=== PATIENT | female | born 1985 | race American Indian/Alaskan Native ===

== ENCOUNTER 2017-04-18 05:24 | Emergency (ER) | payer OTHER ==
[2017-04-18] MEDS ORDERED: DECADRON IV ONE (07:23)
[2017-04-18] MEDS ORDERED: UNASYN/NS 3 GM/100 ML 3 GM/100 ML BAG IV ONE (07:23)
[2017-04-18] MEDS ORDERED: FLAGYL 500 MG/100 ML 500 MG/100 ML BAG IV ONE (07:23)
[2017-04-18] MEDS ORDERED: NACL 0.9% 1000 ML IV ONE (07:23)
[2017-04-18] MEDS ORDERED: TYLENOL PR ONE (07:25)
--- NOTE | 2017-04-18 07:26 | Emergency Department Report ---
ED General Adult HPI - General Chief complaint: Sore Throat Stated complaint: SORE THROAT; FEVER Time Seen by Provider: 04/18/17 07:18 Source: patient, family, RN notes reviewed Mode of arrival: Ambulatory Limitations: Physical Limitation - History of Present Illness Initial comments: This is a 32-year-old female who was previously unknown to this provider. The patient indicates that she is not . Patient presents to the ER with a complaint of neck pain, sore throat, difficulty swallowing for 3-4 days. Patient has difficulty speaking, however she is able to answer yes no questions by nodding her head. She indicates positive fevers, positive mild headache, positive neck pain, no chest pain, abdominal pain, shortness breath, nausea, vomiting, diarrhea, patient indicates no recent travel -: Gradual Location: neck Radiation: non-radiation Quality: aching Consistency: constant Improves with: movement, rest Associated Symptoms: fever/chills, malaise, weakness. denies: chest pain, cough - Related Data Home Medications Medication Instructions Recorded Confirmed Last Taken No Known Home Medications [No 03/15/16 03/15/16 Unknown Reported Home Medications] Allergies Allergy/AdvReac Type Severity Reaction Status Date / Time No Known Allergies Allergy Unverified 03/15/16 19:08 ED Review of Systems ROS: Stated complaint: SORE THROAT; FEVER Other details as noted in HPI ED Past Medical Hx - Past Medical History Previous Medical History?: No - Surgical History Past Surgical History?: No - Social History Smoking Status: Current Every Day Smoker Substance Use Type: None - Medications Home Medications: Home Medications Medication Instructions Recorded Confirmed Last Taken Type No Known Home Medications [No 03/15/16 03/15/16 Unknown History Reported Home Medications] ED Physical Exam - General Limitations: Physical Limitation General appearance: alert, in distress - Head Head exam: Present: atraumatic, normocephalic - Eye Eye exam: Present: normal appearance, EOMI - ENT ENT exam: Present: mucous membranes moist, normal external ear exam, other ( patient has submandibular tenderness. Patient has trismus. Patient has difficulty speaking. There is no stridor. Patient has diffuse anterior neck tenderness. There is pain with tracheal manipulation) - Neck Neck exam: Present: normal inspection, full ROM, lymphadenopathy - Respiratory Respiratory exam: Present: normal lung sounds bilaterally. Absent: respiratory distress - Cardiovascular Cardiovascular Exam: Present: normal rhythm, tachycardia, normal heart sounds. Absent: systolic murmur, diastolic murmur, rubs, gallop - GI/Abdominal GI/Abdominal exam: Present: soft, normal bowel sounds. Absent: distended, tenderness, guarding, rebound, rigid, pulsatile mass - Extremities Exam Extremities exam: Present: normal inspection, full ROM, normal capillary refill. Absent: tenderness, pedal edema, joint swelling, calf tenderness - Back Exam Back exam: Present: normal inspection, full ROM. Absent: tenderness, CVA tenderness (R), paraspinal tenderness, vertebral tenderness - Neurological Exam Neurological exam: Present: alert, other (Extraocular movements intact. Tongue midline. No facial droop. Facial sensation intact to light touch in the V1, V2 , V3 distribution bilaterally. 5 and 5 strength in 4 extremities.. Sensation is intact to light touch in 4 extremities.). Absent: motor sensory deficit - Psychiatric Psychiatric exam: Present: anxious - Skin Skin exam: Present: warm, dry, intact, normal color. Absent: rash ED Course Vital Signs 04/18/17 04/18/17 04/18/17 05:28 07:36 07:59 Temperature 102.7 F H Pulse Rate 116 H Respiratory 18 12 Rate Blood Pressure 139/76 119/78 O2 Sat by Pulse 97 97 98 Oximetry 04/18/17 04/18/17 04/18/17 08:01 08:03 08:05 Temperature Pulse Rate Respiratory Rate Blood Pressure 99/66 99/66 99/66 O2 Sat by Pulse 100 99 99 Oximetry 04/18/17 04/18/17 04/18/17 08:07 08:09 08:11 Temperature Pulse Rate Respiratory Rate Blood Pressure 99/66 99/66 99/66 O2 Sat by Pulse 100 99 99 Oximetry 04/18/17 04/18/17 04/18/17 08:13 08:15 08:16 Temperature Pulse Rate Respiratory Rate Blood Pressure 99/66 99/66 99/66 O2 Sat by Pulse 100 99 99 Oximetry 04/18/17 04/18/17 04/18/17 08:31 08:32 08:35 Temperature Pulse Rate 102 H Respiratory 13 Rate Blood Pressure 114/73 114/73 114/73 O2 Sat by Pulse 100 100 100 Oximetry 04/18/17 04/18/17 04/18/17 08:37 08:39 08:41 Temperature Pulse Rate 100 H 97 H 103 H Respiratory 13 13 11 L Rate Blood Pressure 114/73 114/73 114/73 O2 Sat by Pulse 99 99 100 Oximetry 04/18/17 04/18/17 04/18/17 08:43 08:45 08:47 Temperature Pulse Rate 103 H 101 H 101 H Respiratory 13 10 L 12 Rate Blood Pressure 114/73 114/73 114/73 O2 Sat by Pulse 100 100 100 Oximetry 04/18/17 04/18/17 04/18/17 08:49 08:51 08:53 Temperature Pulse Rate 100 H 107 H 106 H Respiratory 10 L 9 L 10 L Rate Blood Pressure 124/70 124/70 124/70 O2 Sat by Pulse 100 100 100 Oximetry 04/18/17 04/18/17 04/18/17 08:55 08:57 08:59 Temperature Pulse Rate 107 H 109 H 109 H Respiratory 12 14 9 L Rate Blood Pressure 124/70 124/70 111/71 O2 Sat by Pulse 100 100 99 Oximetry 04/18/17 04/18/17 04/18/17 09:00 09:03 09:05 Temperature 102.6 F H Pulse Rate 104 H 103 H 104 H Respiratory 8 L 13 12 Rate Blood Pressure 111/71 111/71 111/71 O2 Sat by Pulse 100 100 97 Oximetry 04/18/17 04/18/17 04/18/17 09:07 09:09 09:11 Temperature Pulse Rate 106 H 100 H 102 H Respiratory 12 19 11 L Rate Blood Pressure 111/71 111/71 111/71 O2 Sat by Pulse 99 99 99 Oximetry 04/18/17 04/18/17 04/18/17 09:13 09:15 09:17 Temperature Pulse Rate 103 H 106 H 112 H Respiratory 14 12 15 Rate Blood Pressure 111/71 111/71 111/71 O2 Sat by Pulse 98 98 99 Oximetry 04/18/17 04/18/17 04/18/17 09:19 09:21 09:23 Temperature Pulse Rate 106 H 107 H Respiratory 12 11 L Rate Blood Pressure 99/66 99/66 99/66 O2 Sat by Pulse 97 98 99 Oximetry 04/18/17 04/18/17 04/18/17 09:25 09:27 09:29 Temperature Pulse Rate 108 H 104 H 119 H Respiratory 10 L 12 12 Rate Blood Pressure 99/66 99/66 99/66 O2 Sat by Pulse 99 99 99 Oximetry 04/18/17 04/18/17 04/18/17 09:31 09:33 09:35 Temperature Pulse Rate 110 H 112 H 98 H Respiratory 15 12 13 Rate Blood Pressure 99/66 99/66 99/66 O2 Sat by Pulse 99 100 99 Oximetry 04/18/17 04/18/17 04/18/17 09:37 09:39 09:41 Temperature Pulse Rate 99 H 91 H 91 H Respiratory 13 15 12 Rate Blood Pressure 99/66 99/66 99/66 O2 Sat by Pulse 98 99 99 Oximetry 04/18/17 04/18/17 04/18/17 09:43 09:45 09:47 Temperature Pulse Rate 97 H 93 H 100 H Respiratory 13 9 L 12 Rate Blood Pressure 99/66 99/66 99/66 O2 Sat by Pulse 99 98 96 Oximetry 04/18/17 09:49 Temperature Pulse Rate 101 H Respiratory 16 Rate Blood Pressure 99/66 O2 Sat by Pulse 97 Oximetry - Reevaluation(s) Reevaluation #1: 04/18/17 08:09 Vital Signs 04/18/17 05:28 Temperature 102.7 F H Pulse Rate 116 H Respiratory 18 Rate Blood Pressure 139/76 O2 Sat by Pulse 97 Oximetry Lab Results 04/18/17 04/18/17 04/18/17 Range/Units 07:28 07:28 07:28 WBC 23.4 H (4.5-11.0) K/mm3 RBC 4.27 (3.65-5.03) M/mm3 Hgb 12.4 (10.1-14.3) gm/dl Hct 36.2 (30.3-42.9) % MCV 85 (79-97) fl MCH 29 (28-32) pg MCHC 34 (30-34) % RDW 16.1 H (13.2-15.2) % Plt Count 255 (140-440) K/mm3 PT 14.6 (12.2-14.9) Sec. INR 1.08 (0.87-1.13) Sodium 138 (137-145) mmol/L Potassium 3.5 L (3.6-5.0) mmol/L Chloride 97.4 L (98-107) mmol/L Carbon Dioxide 24 (22-30) mmol/L Anion Gap 20 mmol/L BUN 6 L (7-17) mg/dL Creatinine 0.7 (0.7-1.2) mg/dL Estimated GFR > 60 ml/min BUN/Creatinine Ratio 9 % Glucose 131 H (65-100) mg/dL Calcium 8.8 (8.4-10.2) mg/dL Total Creatine Kinase (30-135) units/L 04/18/17 Range/Units 07:28 WBC (4.5-11.0) K/mm3 RBC (3.65-5.03) M/mm3 Hgb (10.1-14.3) gm/dl Hct (30.3-42.9) % MCV (79-97) fl MCH (28-32) pg MCHC (30-34) % RDW (13.2-15.2) % Plt Count (140-440) K/mm3 PT (12.2-14.9) Sec. INR (0.87-1.13) Sodium (137-145) mmol/L Potassium (3.6-5.0) mmol/L Chloride (98-107) mmol/L Carbon Dioxide (22-30) mmol/L Anion Gap mmol/L BUN (7-17) mg/dL Creatinine (0.7-1.2) mg/dL Estimated GFR ml/min BUN/Creatinine Ratio % Glucose (65-100) mg/dL Calcium (8.4-10.2) mg/dL Total Creatine Kinase 202 H (30-135) units/L Differential diagnosis, including but not limited to:Neck infection, intraoral infection, odontogenic infection Assessment and plan: 32-year-old female with fever, tachycardia, leukocytosis, neck tenderness, concerning for neck infection. Patient is currently nauseous and vomiting. She is protecting her airway. There is no stridor. An emergent CT scan of the neck has been requested. Patient will be treated according to the sepsis pathway, she will be given metronidazole and ampicillin sulbactam. Patient will likely require transfer to a facility that has ENT or oral maxillofacial surgery. Reevaluation #2: 04/18/17 09:11 As expected, CT scan demonstrates multiple complex foci of infection. Patient protecting her airway at this time. There is no stridor. Patient is saturating well. Case presented to otolaryngology on-call, Dr. Jose Call, at [facility], he accepts the patient as a transfer for aforementioned findings. Family informed, patient informed. Reevaluation #3: 04/18/17 10:20 Patient is transported out, she continues to protect her airway and clinically looks well. ED Medical Decision Making - Lab Data Result diagrams: 04/18/17 07:28 04/18/17 07:28 - Radiology Data Radiology results: pending Critical care attestation.: If time is entered above; I have spent that time in minutes in the direct care of this critically ill patient, excluding procedure time. ED Disposition Clinical Impression: Sepsis Disposition: [id number]/TX-[id number] GEN HOSP IP Is pt being admited?: No Does the pt Need Aspirin: No Condition: Good Referrals: PRIMARY CARE, [Primary Care Provider] - 3-5 Days
[2017-04-18] MEDS ORDERED: NACL ONE (07:33)
[2017-04-18 07:53] LABS: Hematocrit 36.2 % (30.3-42.9); Hemoglobin 12.4 gm/dl (10.1-14.3); Mean Corpuscular HGB Conc 34 % (30-34); Mean Corpuscular Hemoglobin 29 pg (28-32); Mean Corpuscular Volume 85 fl (79-97); Platelet Count 255 K/mm3 (140-440); Red Blood Count 4.27 M/mm3 (3.65-5.03); Red Cell Distribution Width 16.1 % (13.2-15.2)
[2017-04-18 08:04] LABS: INR 1.08 (0.87-1.13)
[2017-04-18 08:05] LABS: BUN/Creatinine Ratio 9; Blood Urea Nitrogen 6 mg/dL (7-17); Calcium 8.8 mg/dL (8.4-10.2); Hemolysis Index 10
[2017-04-18] MEDS ORDERED: ZOFRAN IV ONE (08:10)
[2017-04-18] MEDS ORDERED: ZOFRAN ONE (08:12)
--- NOTE | 2017-04-18 09:00 | Cat Scan Report ---
FINAL REPORT EXAM: CT NECK W CON HISTORY: deep space neck abscess TECHNIQUE: CT images are acquired through the neck following intravenous administration of contrast. Transaxial , coronal and sagittal reformations are provided. PRIORS: None. FINDINGS: There enlargement of the right submandibular salivary gland with central hypoenhancement measuring approximately 1.7 x 1.8 x 4 cm. The airway and right parapharyngeal space are deviated to the left. Edema and fat stranding in the right parapharyngeal space extend to the skullbase. The central airway remains patent. There is mild edematous enlargement of the right masseter muscle. Multiple reactive cervical lymph nodes are present throughout the right neck. [place] tonsils are symmetric and normally enhancing. Carotid and jugular vessels are normal in caliber and well opacified. Imaged portion of the brain is grossly unremarkable. Normal spherical shape of the globes. The retro bulbar fat is unremarkable. No significant abnormality involving the paranasal sinuses or mastoid air cells. Incomplete evaluation of the lung apices is unremarkable. Cervical spine is intact. IMPRESSION: Central hypo enhancement within the enlarged right submandibular salivary gland measures 1.7 x 1.8 x 4 cm and is concerning for abscess formation. Inflammatory stranding and edema extend throughout multiple mucosal spaces of the right neck and deviates the airway to the left, as detailed above. The central airway remains patent, and no evident vascular complication is present. Dr. Mendoza discussed findings with Dr Sofia at 0749 central Time on 04/18/2017 immediately following the examination.
[2017-04-18 09:47] LABS: Basophils % (Manual) 0 % (0.0-1.8); Eosinophils % (Manual) 0 % (0.0-4.3); Total Cells Counted 100
[2017-04-18 09:48] LABS: Anisocytosis 1+; Platelet Estimate Cons; Toxic Granulation 2+; Toxic Vacuolation 2+
[2017-04-18] MEDS ORDERED: NACL 0.9% 1000 ML 1,000 ML ONE (10:16)
[2017-04-18 10:31] VITALS: BP 98/69
== END 2017-04-18 11:29 | disposition short-term general hospital (02) ==
LOC: ED 05:24
DX: A41.9 Sepsis, unspecified organism (principal); F17.200 Nicotine dependence, unspecified, uncomplicated
CPT/HCPCS: 36415; 70491; 80048; 82140; 82550; 84702; 85007; 85025; 85610; 87040; 96365; 96367; 96375; 99285; J0295; J1100; J2405; J7030; Q9967